=== PATIENT | female | born 1980 | race Caucasian/White ===

== ENCOUNTER → 2020-06-07 | Outpatient (CLI) | payer OTHER ==
[~2020-06-07] VITALS: Ht 160 cm; Wt 59.0 kg
[~2020-06-07] MED LIST: ABILIFY 2 MG2 M1 PO; BUSPIRONE HCL10 MG PO; FEOSOL325 M1 PO; PLAQUENIL200 MG PO; PROAIR HFA8.5 GM INH; PROTONIX40 M2 PO; QUESTRAN PACKET4 GM PO; SINGULAIR 10 MG10 M1 PO; VALACYCLOVIR1000 MG PO; WELLBUTRIN XL300 MG PO; YAZ 28 TABLET1 EACH PO; ZYRTEC10 M5 PO
--- NOTE | 2020-06-12 17:06 | PATH ---
[facility] [address] [place] [address] PATHOLOGY RPT PROCEDURE Name: IQRA PIERRE Room #: [facility] [id number] Admission: 06/07/20 Date of : 78 Discharge: Report #: [id number] Path Case #: [id number] [facility] Accession Number: [id number] . 01 Material submitted: . stomach - BIOPSY GASTRITIS . 01 Clinical history: . PEREZ/GERD/EOE, GASTRITIS . 02 Diagnosis: Gastric mucosa, gastritis, endoscopic biopsy: - Mild chronic inflammation. - Negative for intestinal metaplasia or atrophy. - Negative for Helicobacter pylori (properly controlled immunohistochemical stain performed). (IUV/db; 06/12/2020) LBQ 06/12/2020 1156 Local . 02 Electronically signed: . Shahrzad Bella MD, Pathologist NPI- [id number] . 01 Gross description: . The specimen is received in formalin, labeled "Iqra Pierre, biopsy gastritis". Received are two segments of pale valenzuela soft tissue ranging in size from 0.3 to 0.5 cm in maximum dimensions. The specimen is submitted entirely in cassette A1. (CAA; 06/08/2020) QA/QA 06/08/2020 1651 Local . 02 Pathologist provided ICD-10: K29.50 . 02 CPT . 537110, [id number] Specimen Comment: A courtesy copy of this report has been sent to [phone] Specimen Comment: [phone] Specimen Comment: Report sent to / DR DUVALL Performed at: [address] [id number] MD Moris Alonso MD Phone: [phone] Performed at: [address] [id number] [address] [address] PATHOLOGY RPT PROCEDURE Name: IQRA PIERRE Room #: REG KALYN Herman.#: [id number] Admission: 06/07/20 Date of : 78 Discharge: Report #: [id number] Path Case #: [id number] MD Shahrzad Bella MD Phone: [phone]
== END | disposition home or self-care (01) ==
LOC: GI 09:12
PROVIDERS: ATTEND Internal Medicine Gastroenterology
DX: K29.50 Unspecified chronic gastritis without bleeding (principal); K31.89 Other diseases of stomach and duodenum; K21.9 Gastro-esophageal reflux disease without esophagitis; J45.909 Unspecified asthma, uncomplicated; F32.9 Major depressive disorder, single episode, unspecified; F41.9 Anxiety disorder, unspecified; Z98.890 Other specified postprocedural states; Z79.899 Other long term (current) drug therapy
CPT/HCPCS: 62110; 62900